=== PATIENT | female | born 1970 | race Caucasian/White ===

== ENCOUNTER 2020-04-15 17:03 | Emergency (ER) | payer BC, SELFPAY ==
--- NOTE | ~2020-04-15 | CT_ITS ---
EXAMINATION: CT abdomen pelvis w con DATE: 04/15/2020 19:58 INDICATION: Upper abdominal pain TECHNIQUE: Computed tomography (CT) of the abdomen and pelvis was performed with 100 cc Omnipaque 350 intravenous contrast. The dose-length product was 425.70 mGy-cm. Automated exposure control and iter ative reconstruction technique were employed. COMPARISON: None. FINDINGS: Lung bases unremarkable. No significant pleural or pericardial effusion. Heart size is norm al. The liver, spleen, pancreas, adrenal glands are unremarkable. There are multiple low-density lesions in the kidneys, most likely benign cyst. There is cortical scarring of the right kidney. Gallbladder is present. There is abnormal gastric wall thickening primarily involving the antrum with mild thickening of the duodenum with enhancement. There is also thickening of the distal aspect of the esophagus and body of the stomach. No obstruction. No free air or free fluid. No evidence for perforation. No acute osseou s abnormality. No significant vascular abnormality. No lymphadenopathy. IMPRESSION: 1. Abnormal thickening of the distal esophagus, stomach and duodenum, most likely infectious/inflamma tory. No evidence for obstruction or perforation. Reviewed, dictated and finalized at location A. IMPRESSION: 1. Abnormal thickening of the distal esophagus, stomach and duodenum, most like ly infectious/inflammatory. No evidence for obstruction or perforation.
[2020-04-15 17:06] VITALS: BP 171/80; PULSE 100; RESP 19; TEMP 36.2; O2SAT 100
[2020-04-15 17:16] LABS: Basophils Percent Auto 0.4 % (0.2-1.2); Eosinophils Absolute Auto 0.1 K/mm3 (0-0.3); Eosinophils Percent Auto 0.9 % (0-4.4); Hemoglobin 13.9 g/dL (12.0-15.0); Immature Granulocyte Absolute 0.02 K/mm3 (0.00-0.031); Immature Granulocyte Percent A 0.2 % (0-0.5); Lymphocytes Absolute Auto 2.24 K/mm3 (0.9-3.2); Lymphocytes Percent Auto 27.9 % (18.3-44.2); Mean Corpuscular HGB Conc 33.9 g/dl (32-36); Mean Corpuscular Hemoglobin 29.6 pg (26-34); Mean Corpuscular Volume 87.2 fl (80-100); Mean Platelet Volume 9.8 fl (7.4-10.4); Monocytes Absolute Auto 0.5 K/mm3 (0.1-0.6); Neutrophils Absolute Auto 5.2 K/mm3 (1.3-6.7); Neutrophils Percent Auto 64.6 % (45.5-73.1); Platelet Count Result 254 k/mm3 (150-375); Red Cell Distribution Width 11.9 % (11.5-14.5)
[2020-04-15 17:28] LABS: Alanine Aminotransferase 24 U/L (4-35); Albumin Level 4.2 g/dL (3.5-5.1); Alkaline Phosphatase 69 U/L (38-126); Aspartate Amino Transferase 22 U/L (14-36); Bilirubin,Total 0.5 mg/dL (0.2-1.3); Blood Urea Nitrogen 17 mg/dL (7-17); Calcium 9.5 mg/dL (8.4-10.2); Carbon Dioxide 27 mmol/L (22-30); Chloride 104 mmol/L (98-107); Estimated CRCL calculation 110 ml/min; Estimated Glomerular Filt Rate > 60; Glucose 110 mg/dL (65-105); Lipase 170 U/L (23-300); Potassium 3.8 mmol/L (3.4-5.0); Sodium 139 mmol/L (137-145)
[2020-04-15 18:06] LABS: Add Urine Microscopic? YES; Amorphous Sediment Urine Few; Appearance Urine Cloudy (Clear); Bacteria Urine Trace /hpf; Bilirubin Urine Negative (Negative); Blood Urine Negative (Negative); Color Urine Yellow (Yellow); Glucose Urine UA Negative (Negative); Ketones Urine Negative (Negative); Leukocyte Esterase Ur Negative LEU/UL (Negative); Mucus Urine Rare /lpf; Nitrate Urine Negative (Negative); Protein Urine Negative (Negative); RBC Urine 0-2 /hpf (0-2); Specific Grav Ur 1.018 (1.001-1.035); Squamous Epithelial Cell Urine Few /hpf (Few); Urobilinogen Urine Negative mg/dL (<2.0); WBC Urine 0-3 /hpf
--- NOTE | 2020-04-15 18:51 | ECG_ITS ---
Measurements Intervals [place] Rate: 94 P: 67 GA: 168 QRS: 16 QRSD: 100 T: 61 QT: 381 QTc: 477 Interpretive Statements SINUS RHYTHM NORMAL ECG Electronically Signed On 04-16-2020 11:08:44 CDT by Keith Tapia D.O.
--- NOTE | 2020-04-15 18:52 | ED.ABDPAIN ---
HPI - Abdominal Pain General Chief Complaint: Abdominal Pain Stated Complaint: abdomina pain Time Seen by Provider: 04/15/20 18:29 Source: patient Mode of arrival: ambulatory Limitations: no limitations History of Present Illness HPI narrative: This patient is a 49 year old female who presents for evaluation of epigastric pain with nausea and vomiting. She reports this morning after eating she developed epigastric pain. THis pain has been constant and she describes it as if she was punched in the stomach. She has also had multiple episodes of bilious nausea and vomiting. She has been unable to keep anything down. She denies diarrhea or melena. She denies similar pain in the past. She denies fever or chills. She was tested for COVID today at work. MD elicited complaint: abdominal pain Location: epigastric Quality: aching Radiation: R flank Exacerbating factors: eating Associated symptoms: nausea and vomiting Related Data Allergies Allergy/AdvReac Type Severity Reaction Status Date / Time No Known Allergies Allergy Unverified 05/01/13 20:48 Review of Systems Review of Systems: All systems reviewed & are unremarkable except as noted in HPI and below Constitutional: Constitutional: Denies chills and Denies fever(s) ENT: Denies epistaxis and Denies sore throat Cardiovascular: Cardiovascular: Denies chest pain and Denies radiating jaw, neck or arm pain Respiratory: Respiratory: Denies cough and Denies dyspnea Gastrointestinal: Gastrointestinal: Reports abdominal pain, Denies constipation, Denies diarrhea, Reports nausea and Reports vomiting Genitourinary: Genitourinary: Denies hematuria, Denies dysuria and Denies urinary incontinence Musculoskeletal: Musculoskeletal: Denies back pain PMFSH Past Medical History Medical History (Updated 04/15/20 @ 21:30 by Bhavna Almeida MD) Patient denies medical problems Surgical History Surgical History (Updated 04/15/20 @ 18:53 by Bhavna Almeida MD) No significant past surgical history Social History Social History (Updated 04/15/20 @ 18:53 by Bhavna Almeiad MD) Smoking packs per day: 0.5 Smoking cigarettes per day: 10.0 Smoking status: Current every day smoker Alcohol intake: current Alcohol use details: occasionally Substance use: never Gender identity (if verbalized by the patient): Female Exam Narrative: Exam Narrative: GENERAL: Well-appearing, well-nourished, and in no acute distress. HEAD: Normocephalic, atraumatic EYES: PERRLA and EOMI, conjunctiva clear without discharge THROAT:Mucous membranes moist, NECK: Supple, without lymphadenopathy or mass RESPIRATORY: No respiratory distress, Airway patent, Respirations non-labored, Clear to auscultation without rales, rhonchi or wheeze HEART: Regular rate and rhythm. No murmur heard. Normal peripheral pulses. ABDOMEN: Soft, epigastric, RUQ, RLQ, nondistended, normal active bowel sounds. No masses. No rebound or guarding, No organomegaly. EXTREMITIES: No edema, normal strength with full range of motion. SKIN: Warm, dry, normal color without rash NEURO: Alert and oriented x3. CN 2-12 grossly intact. No focal deficits. PSYCH: Normal mood and affect. Course Reevaluation(s) Reevaluation #1: Patient states she feels much better. she is able to tolerate PO. She is agreeable to discharge with follow up with GI this week. Date: 04/15/20 Time: 21:25 Consultations Consultation #1: Dr. Finn Parker agrees to see patient as outpatient. He states he may be able to see patient on Monday. Date: 04/15/20 Time: 21:26 Vital Signs Vital signs: Vital Signs Temperature 97.1 F L 04/15/20 17:06 Pulse Rate 100 04/15/20 17:06 Respiratory Rate 19 04/15/20 17:06 Blood Pressure 171/80 H 04/15/20 17:06 Pulse Oximetry 100 04/15/20 17:06 Temperature 97.1 F L 04/15/20 17:06 Pulse Rate 89 04/15/20 20:06 Respiratory Rate 16 04/15/20 20:06 Blood Pressure 164
[2020-04-15] MEDS: ONDANSETRON INJ 4 MG/2 ML VIAL IV PUSH (19:09)
[2020-04-15] MEDS: PANTOPRAZOLE SODIUM IV 40 MG VIAL IV PUSH (19:09)
[2020-04-15] MEDS: LACTATED RINGERS 1,000 ML 999 ML IV CONT (19:09)
[2020-04-15 20:06] VITALS: BP 164/82; PULSE 89; RESP 16; O2SAT 100
[2020-04-15 22:27] VITALS: BP 131/85; PULSE 78; RESP 18; TEMP 36.6; O2SAT 97
== END 2020-04-15 22:28 | disposition home or self-care (01) ==
PROVIDERS: Family Medicine; Emergency Provider General Practice
DX: R10.13 Epigastric pain (principal); R11.2 Nausea with vomiting, unspecified; F17.210 Nicotine dependence, cigarettes, uncomplicated; R93.5 Abnormal findings on diagnostic imaging of other abdominal regions, including retroperitoneum
CPT/HCPCS: 36415; 74177; 80053; 81001; 81025; 83690; 85025; 93005; 96365; 96375; 99284; C9113; J0131; J2405; J7120; Q9967